=== PATIENT | female | born 1995 | race Two or more races ===

== ENCOUNTER → 2020-02-17 | Emergency (ER) | payer MEDICAID ==
[~2020-02-17] VITALS: Ht 157.5 cm; Wt 70.3 kg
[2020-02-17 18:47] LABS: Urine Bacteria NONE SEEN /hpf (None Seen); Urine Blood 3+ /uL (Negative); Urine Specific Gravity 1.017 (1.001-1.035); Urine WBC 1 /hpf (0 - 5)
[2020-02-17 21:54] VITALS: BP 142/78
== END | disposition home or self-care (01) ==
LOC: ER 17:04
DX: O03.9 Complete or unspecified spontaneous abortion without complication (principal)
CPT/HCPCS: 36415; 76801; 76817; 81001; 81025; 84702

== ENCOUNTER → 2023-01-13 | Emergency (ER) | payer MEDICAID ==
[~2023-01-13] VITALS: Ht 160 cm; Wt 74.6 kg
[2023-01-13 15:14] LABS: Basophils # (auto) 0 10 ^3/uL (0-0.2); Basophils % (auto) 0.7 % (0.0-2.0); Eosinophils # (auto) 0.1 10 ^3/uL (0-0.8); Eosinophils % (auto) 2.1 % (0.0-7.0); Hematocrit 43.1 % (36.0-46.0); Hemoglobin 14.6 g/dL (12.2-16.2); Lymphocytes # (auto) 2.3 10 ^3/uL (0.4-5.4); Lymphocytes % (auto) 32.9 % (10.0-50.0); Mean Corpuscular Hemoglobin 30.3 pg (28.0-32.0); Mean Corpuscular Hgb Conc. 33.9 g/dL (32.0-36.0); Mean Corpuscular Volume 89.4 fL (80.0-100.0); Monocytes # (auto) 0.4 10 ^3/uL (0-1.3); Monocytes % (auto) 6.2 % (0.0-12.0); Neutrophils % (auto) 58.1 % (37.0-80.0); Nucleated Red Blood Cells % 0.1 %; Red Blood Cells 4.82 10^6/uL (4.0-5.20); Red Cell Distribution Width 13.7 % (11.8-14.3); White Blood Cell 6.9 10^3/uL (4.4-10.8)
[2023-01-13 15:29] LABS: Urine Bacteria FEW /hpf (None Seen); Urine Blood 3+ /uL (Negative); Urine Specific Gravity 1.011 (1.001-1.035); Urine WBC 3 /hpf (0 - 5)
[2023-01-13 16:36] LABS: INR 0.91 (0.9-1.15); Partial Thromboplastin Time 27.9 SEC (24.5-34.5)
[2023-01-13 16:43] LABS: Albumin 3.9 g/dL (3.4-5.0); BUN/Creatinine Ratio 11.1 (10.0-20.0)
[2023-01-13 16:46] LABS: Bilirubin, Total 0.2 mg/dL (0.2-1.0); Total Protein 7.5 g/dL (6.4-8.2)
[2023-01-13 20:56] VITALS: BP 144/73
== END ==
LOC: ER 14:27
DX: O20.0 Threatened abortion (principal); Z3A.01 Less than 8 weeks gestation of pregnancy
CPT/HCPCS: 36415; 76801; 76817; 80053; 81001; 84702; 85025; 85610; 85730